=== PATIENT | male | born 2000 | race Hispanic/Latino ===

== ENCOUNTER 2020-04-24 19:30 | Emergency (ER) | payer SELFPAY, OTHER ==
--- NOTE | 2020-04-24 22:12 | ER ---
Nurse's Notes [facility] Name: Isaiah Myers Age: 20 yrs Sex: Male : 2000 Arrival Date: 04/24/2020 Time: 19:33 Bed 20 Private MD: Diagnosis: Person with feared health complaint in whom no diagnosis is made Presentation: 04/24 20:04 Chief complaint: Patient states: "I think I have anxiety attacks since 2 days ago. The ca1 SOB comes and goes. I don't really have cough but I feel like there is mucous in my throat and I feel like that is what is causing the SOB" Reports chest pain, sore throat. 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 Coronavirus screen: Proceed with normal triage. Patient denies a cough. Patient denies shortness of breath or difficulty breathing. Patient denies measured and/or subjective temperature greater than 100.4F prior to today's visit. Patient denies travel on a cruise ship or to a country the [facility] currently lists as an affected area. Patient denies contact with known and/or suspected case of COVID-19. Ebola Screen: Patient negative for fever greater than or equal to 101.5 degrees Fahrenheit, and additional compatible Ebola Virus Disease symptoms Patient denies exposure to infectious person. Patient denies travel to an Ebola-affected area in the 21 days before illness onset. No symptoms or risks identified at this time. Initial Sepsis Screen: Does the patient meet any 2 criteria? No. Patient's initial sepsis screen is negative. Does the patient have a suspected source of infection? No. Patient's initial sepsis screen is negative. Risk Assessment: Do you want to hurt yourself or someone else? Patient reports no desire to harm self or others. Onset of symptoms was April 24, 2020. 20:04 Method Of Arrival: Ambulatory ca1 20:04 Acuity: RYAN 3 ca1 Triage Assessment: 20:09 General: Appears in no apparent distress. comfortable, Behavior is calm, cooperative, ca1 appropriate for age. Respiratory: Reports shortness of breath. Respiratory: Airway is patent Respiratory effort is even, unlabored, Respiratory pattern is regular, symmetrical. 21:45 Respiratory: Onset: The symptoms/episode began/occurred suddenly, the patient reports wh symptoms have resolved. Historical: - Allergies: 20:09 No Known Allergies; ca1 - Home Meds: 20:09 Xanax Oral [Active]; ca1 - PMHx: 20:09 Anxiety; Asthma; ca1 - PSHx: 20:09 Tonsillectomy; ca1 - Immunization history:: Adult Immunizations up to date. - Social history:: Smoking status: Patient denies any tobacco usage or history of. Screenin:00 Abuse screen: Denies threats or abuse. Denies injuries from another. Nutritional wh screening: No deficits noted. Tuberculosis screening: No symptoms or risk factors identified. Fall Risk None identified. Assessment: 21:45 General: Appears in no apparent distress. Behavior is calm, cooperative, appropriate wh for age. Pain: Denies pain. Neuro: Level of Consciousness is awake, alert, obeys commands. Cardiovascular: Heart tones S1 S2 Rhythm is regular. Respiratory: Reports shortness of breath Airway is patent Respiratory effort is even, unlabored, Respiratory pattern is regular, symmetrical, Breath sounds are clear bilaterally. GI: Abdomen is flat, non-distended. : No signs and/or symptoms were reported regarding the genitourinary system. EENT: Throat is pink. Derm: Skin is intact, is healthy with good turgor, Skin is pink, warm \\T\\ dry. normal. Musculoskeletal: Circulation, motion, and sensation intact. Vital Signs: 20:04 BP 116 / 88; Pulse 78; Resp 16 S; Temp 98.3(O); Pulse Ox 100% on R/A; Weight 71.21 kg ca1 (R); Height 5 ft. 11 in. (180.34 cm) (R); 22:15 BP 123 / 90; Pulse 80; Resp 18; Pulse Ox 100% on R/A; wh 20:04 Body Mass Index 21.90 (71.21 kg, 180.34 cm) ca1 ED Course: 19:33 Patient arrived in ED. ds1 20:08 Triage completed. ca1 20:09 Arm band placed on. ca1 20:09 EKG completed in triage. Results shown to MD. ca1 21:43 Trav Lindsay PA is PHCP. cp 21:43 Trav Mccarthy MD is Attending Physician. cp 21:59 Cole Leblanc is Primary Nurse. wh 22:00 Patient has correct armband on for positive identification. Bed in low position. Call wh light in reach. Side rails up X 1. Pulse ox on. NIBP on. 22:20 No provider procedures requiring assistance completed. Patient did not have IV access during this emergency room visit. Administered Medications: No medications were administered Outcome: 22:11 Discharge ordered by . adrian 22:21 Discharged to home ambulatory. 22:21 Condition: stable 22:21 Discharge instructions given to patient, Instructed on discharge instructions, follow up and referral plans. POC Demonstrated understanding of instructions, follow-up care, POC 22:22 Patient left the ED. Signatures: Zohra Christine ds1 Trav Lindsay PA PA cp Habalo, Winsy Cindy Aceves RN RN ca1 Corrections: (The following items were deleted from the chart) 20:10 20:04 Acuity: RYAN 2 ca1 ca1
--- NOTE | 2020-04-24 22:12 | EDPHYS ---
Physician Documentation [facility] Name: Isaiah Myers Age: 20 yrs Sex: Male : 2000 Arrival Date: 04/24/2020 Time: 19:33 Bed 20 Private MD: ED Physician Trav Mccarthy HPI: 04/24 22:05 This 20 yrs old Male presents to ER via Ambulatory with complaints of cp Shortness Of Breath. 22:05 The patient has shortness of breath while lying in bed. Onset: The symptoms/episode cp began/occurred about 30 minutes VP [employer]FORMAT[employer]. Duration: The symptoms are continuous, now resolved after taking Xanax prescribed by physician in the [place]. Associated signs and symptoms: Pertinent negatives: chest pain, non-productive cough, productive cough, dizziness, fever, sore throat. Severity of symptoms: in the emergency department the symptoms have resolved. Historical: - Allergies: 20:09 No Known Allergies; ca1 - Home Meds: 20:09 Xanax Oral [Active]; ca1 - PMHx: 20:09 Anxiety; Asthma; ca1 - PSHx: 20:09 Tonsillectomy; ca1 - Immunization history:: Adult Immunizations up to date. - Social history:: Smoking status: Patient denies any tobacco usage or history of. ROS: 22:07 All other systems are negative. cp Exam: 22:08 Head/Face: Normocephalic, atraumatic. cp 22:08 Constitutional: The patient appears in no acute distress, alert, awake, non-diaphoretic, non-toxic, well developed, well nourished. 22:08 Eyes: Periorbital structures: appear normal, Conjunctiva: normal, no exudate, no injection, Lids and lashes: appear normal, bilaterally. 22:08 ENT: External ear(s): are unremarkable, Ear canal(s): are normal, clear, TM's: dullness, bilaterally, Nose: is normal, Mouth: Lips: moist, Oral mucosa: moist, Posterior pharynx: is normal, airway is patent, no erythema, no exudate. 22:08 Neck: ROM/movement: is normal, is supple, without pain, no range of motions limitations. 22:08 Chest/axilla: Inspection: normal, Palpation: is normal, no crepitus, no tenderness. 22:08 Cardiovascular: Rate: normal, Rhythm: regular, Heart sounds: murmur, not appreciated. 22:08 Respiratory: the patient does not display signs of respiratory distress, Respirations: normal, no use of accessory muscles, no retractions, labored breathing, is not present, Breath sounds: are clear throughout, no decreased breath sounds, no stridor, no wheezing. 22:08 Abdomen/GI: Inspection: abdomen appears normal, Palpation: abdomen is soft and non-tender, in all quadrants. 22:08 Neuro: Orientation: to person, place \T\ time. Mentation: is normal, Motor: moves all fours, strength is normal, Sensation: is normal. 22:08 Special observations: sleeping in exam room. Vital Signs: 20:04 BP 116 / 88; Pulse 78; Resp 16 S; Temp 98.3(O); Pulse Ox 100% on R/A; Weight 71.21 kg ca1 (R); Height 5 ft. 11 in. (180.34 cm) (R); 22:15 BP 123 / 90; Pulse 80; Resp 18; Pulse Ox 100% on R/A; wh 20:04 Body Mass Index 21.90 (71.21 kg, 180.34 cm) ca1 MDM: 21:53 Patient medically screened. camila 21:55 Differential diagnosis: Anxiety Reaction asthma, Bronchitis pneumonia, Pneumothorax. cp 22:10 Data reviewed: vital signs, nurses notes, and as a result, I will discharge patient. 04/24 20:10 Order name: Strep ca1 04/24 20:39 Order name: Throat Culture EDMS 04/24 20:10 Order name: EKG; Complete Time: 20:11 ca1 04/24 20:10 Order name: EKG - Nurse/Tech; Complete Time: 20:16 ca1 Administered Medications: No medications were administered Disposition: 22:15 Chart complete. 04/25 09:02 Co-signature as Attending Physician, Trav Mccarthy MD I agree with the assessment and camila plan of care. Disposition: 04/24/20 22:11 Discharged to Home. Impression: Person with feared health complaint in whom no diagnosis is made. - Condition is Stable. - Medication Reconciliation Form, Thank You Letter, Antibiotic Education, Prescription Opioid Use form. - Follow up: Private Physician; When: 2 - 3 days; Reason: Recheck today's complaints. - Problem is new. - Symptoms are resolved. Signatures: Dispatcher [employer] EDTrav Gibson MD MD cha Page, Corey, PA PA cp Habalo, Winsy wh Acob, Cheryl, RN RN ca1 Corrections: (The following items were deleted from the chart) 04/24 22:22 22:11 04/24/2020 22:11 Discharged to Home. Impression: Person with feared health wh complaint in whom no diagnosis is made. Condition is Stable. Forms are Medication Reconciliation Form, Thank You Letter, Antibiotic Education, Prescription Opioid Use. Follow up: Private Physician; When: 2 - 3 days; Reason: Recheck today's complaints. Problem is new. Symptoms are resolved. cp
[2020-04-24 22:44] VITALS: TEMP 98.3; O2SAT 100
[2020-04-24 22:45] VITALS: BP 123/90
--- NOTE | 2020-04-25 09:55 | EKG ---
Test Date: 2020-04-24 Test Time: 20:16:05 Character Actor: PRINCESS MEASUREMENT RESULTS: Intervals: Rate: 80 [place]: 176 QRSD: 86 QT: 344 QTc: 396 [place]: P: 71 [place]: 176 QRS: 82 T: 31 INTERPRETIVE STATEMENTS: Normal sinus rhythm with sinus arrhythmia ST elevation, consider early repolarization, pericarditis, or injury Abnormal ECG No previous ECG available for comparison Electronically Signed On 04-25-20 09:53:51 CDT by Parth Diaz
== END 2020-04-24 22:22 | disposition home or self-care (01) ==
LOC: ER 19:30
DX: Z71.1 Person with feared health complaint in whom no diagnosis is made (principal); F41.9 Anxiety disorder, unspecified
CPT/HCPCS: 87070; 87081; 93005; 99283